=== PATIENT | male | born 1985 | race Caucasian/White ===

== ENCOUNTER → 2016-02-24 | Day surgery (SDC) | payer BC ==
[~2016-02-24] MED LIST: BENZOCAINE SPRAY 100 APPLIC/CAN TOPICAL PRN; MIDAZOLAM 2 MG/2 ML VIAL ONE; SODIUM CHLORIDE 0.9% 500 ML IV ONE; fentaNYL (PF) 50 MCG/ML 2 ML AMP IV ONE; fentaNYL (PF) 50 MCG/ML 2 ML AMP ONE
[2016-02-24 06:36] VITALS: TEMP 98
[2016-02-24] MEDS: BENZOCAINE SPRAY 100 APPLIC/CAN MUCOUS MEM ONE ×2 (07:35→07:49)
[2016-02-24] MEDS: MIDAZOLAM 2 MG/2 ML VIAL IV ONE ×2 (07:49→07:51)
[2016-02-24 08:22] VITALS: RESP 16
[2016-02-24 08:50] VITALS: BP 127/78; PULSE 74
--- NOTE | 2016-02-24 10:30 | ECHOT ---
DATE OF SERVICE: 02/24/2016 PERFORMING PHYSICIAN: Leonid Chan MD, hogshead inspector. PROCEDURE PERFORMED: Transesophageal echocardiogram. INDICATION: This is a very pleasant 30-year-old gentleman who sees Dr. Adam and was diagnosed with a stroke recently. The transesophageal echocardiogram is to rule out any cardiac source of embolization. SEDATION: Conscious sedation was performed using 3 mg of Versed and 25 mcg of fentanyl on divided doses. COMPLICATIONS: None. LEVEL OF SEDATION: Moderate. PROCEDURE DESCRIPTION: After obtaining an informed consent, explaining the procedure, benefits, risks, complications and alternatives, the patient was brought to the transesophageal echocardiogram suite. A pulse oximetry and heart rate monitors were attached to the patient prior to the procedure. The patient's throat was sprayed using lidocaine locally. Following that, the patient was turned into left lateral position. A bite guard was placed and the patient was then sedated with the above doses of Versed and fentanyl in divided doses. Following that, the transesophageal echocardiogram probe was advanced through the bite guard into the mid esophagus where 2-D echocardiogram images as well as color Doppler images of various cardiac structures were obtained. We evaluated the interatrial septum using 2-D echocardiogram, color Doppler, and contrast study. The procedure was completed. There were no complications. FINDINGS: The left ventricular dimension and systolic function appeared to be within normal limits. The ejection fraction appeared to be in the range of 55% with a normal wall motion. Right ventricle is of normal size and function. The right atrium and left atrium appeared to be within normal limits. The aortic valve is trileaflet valve without stenosis or regurgitation. The mitral valve is normal as well with trace physiologic MR. Normal tricuspid valve and pulmonic valve seen. The left atrial appendage appeared to be free from any thrombus. The interatrial septum appeared to be intact as well. CONCLUSION: 1. There is no evidence of cardiac source of embolization. 2. Intact interatrial septum without any evidence of shunt. No patent foramen ovale ( ) seen. 3. Normal left atrial appendage without any evidence of thrombus. 4. Normal cardiac chamber sizes. 5. Normal left ventricular dimension and systolic function. 6. Normal intracardiac valves. 7. Normal aortic root dimension. 8. No evidence of pericardial effusion.
== END ==
LOC: CATHCVL 05:56
PROVIDERS: ATTEND Internal Medicine Interventional Cardiology
DX: Z86.73 Personal history of transient ischemic attack (TIA), and cerebral infarction without residual deficits (principal)
CPT/HCPCS: 93312; 93320; 93325; J2250; J3010

== ENCOUNTER → 2016-04-04 | Outpatient (CLI) | payer BC ==
[2016-04-04 09:22] LABS: Basophils # (A) 0.1 k/uL (0-0.2); Basophils % (A) 1 %; CH 30.3; CHCM 32.9; Eosinophils # (A) 0.1 k/uL (0-0.7); Eosinophils % (A) 1 %; HCT 45.6 % (39.0-53.0); HDW 2.47; HGB 14.9 gm/dL (13.0-17.5); Luc # (Auto) 0.22; Luc % (Auto) 3; Lymphocytes # (A) 2.6 k/uL (1.0-4.8); Lymphocytes % (A) 30 %; MCH 30.3 pg (25.0-35.0); MCHC 32.8 g/dL (31.0-37.0); MCV 92.5 fL (80.0-100.0); Mean Platelet Volume 7.1; Monocytes # (A) 0.6 k/uL (0-1.0); Monocytes % (A) 7 %; Neutrophils # (A) 5.2 k/uL (1.3-7.7); Neutrophils % (A) 59 %; RBC 4.93 m/uL (4.30-5.90); RDW 13.6 % (11.5-15.5); WBC 8.9 k/uL (3.8-10.6); WBC (Perox) 9.18
[2016-04-05 12:08] LABS: Levetiracetam (Keppra) 18.6 ug/mL (3.0-60.0)
[2016-04-11 12:54] LABS: Mis test requested (Blood) VIMPAT
== END | disposition home or self-care (01) ==
LOC: LABWHC1 08:55
PROVIDERS: ATTEND Psychiatry & Neurology Neurology
DX: G40.309 Generalized idiopathic epilepsy and epileptic syndromes, not intractable, without status epilepticus (principal)
CPT/HCPCS: 36415; 80164; 80177; 80183; 80339; 84295; 84450; 84460; 85025

== ENCOUNTER → 2017-10-10 | Outpatient (CLI) | payer BC ==
[2017-10-10 11:40] LABS: Basophils % (A) 1 %; Eosinophils # (A) 0.1 k/uL (0-0.7); Eosinophils % (A) 2 %; HCT 43.1 % (39.0-53.0); HGB 13.2 gm/dL (13.0-17.5); Lymphocytes % (A) 39 %; MCH 28.9 pg (25.0-35.0); MCHC 30.7 g/dL (31.0-37.0); MCV 93.9 fL (80.0-100.0); Mean Platelet Volume 5.8; Monocytes # (A) 0.4 k/uL (0-1.0); Monocytes % (A) 5 %; Neutrophils % (A) 52 %; Platelet Count 290 k/uL (150-450); RBC 4.59 m/uL (4.30-5.90); RDW 13.8 % (11.5-15.5); WBC 7.7 k/uL (3.8-10.6)
[2017-10-10 11:48] LABS: Valproic Acid (Depakene) 64.1 ug/mL
[2017-10-11 13:33] LABS: Levetiracetam (Keppra) 22.6 ug/mL (3.0-60.0)
== END | disposition home or self-care (01) ==
LOC: LABWHC1 11:08
PROVIDERS: ATTEND Psychiatry & Neurology Neurology
DX: G40.309 Generalized idiopathic epilepsy and epileptic syndromes, not intractable, without status epilepticus (principal)
CPT/HCPCS: 36415; 80164; 80177; 80183; 84295; 84450; 84460; 85025

== ENCOUNTER → 2018-04-17 | Outpatient (CLI) | payer BC ==
[2018-04-17 12:38] LABS: Basophils % (A) 0 %; Eosinophils # (A) 0.1 k/uL (0-0.7); Eosinophils % (A) 2 %; HCT 43.8 % (39.0-53.0); HGB 14.1 gm/dL (13.0-17.5); Lymphocytes # (A) 2.2 k/uL (1.0-4.8); Lymphocytes % (A) 38 %; MCH 29.4 pg (25.0-35.0); MCHC 32.2 g/dL (31.0-37.0); MCV 91.4 fL (80.0-100.0); Mean Platelet Volume 6.3; Monocytes # (A) 0.3 k/uL (0-1.0); Monocytes % (A) 5 %; Neutrophils % (A) 52 %; Platelet Count 291 k/uL (150-450); RDW 13.7 % (11.5-15.5); WBC 5.7 k/uL (3.8-10.6)
[2018-04-18 07:42] LABS: Levetiracetam (Keppra) 14.5 ug/mL (3.0-60.0)
== END | disposition home or self-care (01) ==
LOC: LABWHC1 12:21
PROVIDERS: ATTEND Psychiatry & Neurology Neurology
DX: G40.309 Generalized idiopathic epilepsy and epileptic syndromes, not intractable, without status epilepticus (principal)
CPT/HCPCS: 36415; 80164; 80177; 80183; 80339; 84450; 84460; 85025

== ENCOUNTER → 2018-09-25 | Outpatient (CLI) | payer BC ==
[2018-09-25 12:32] LABS: Basophils % (A) 0 %; Eosinophils # (A) 0.1 k/uL (0-0.7); Eosinophils % (A) 1 %; HGB 14.3 gm/dL (13.0-17.5); Lymphocytes # (A) 2.7 k/uL (1.0-4.8); Lymphocytes % (A) 34 %; MCH 29.9 pg (25.0-35.0); MCHC 32.4 g/dL (31.0-37.0); MCV 92.3 fL (80.0-100.0); Mean Platelet Volume 6.5; Monocytes # (A) 0.5 k/uL (0-1.0); Monocytes % (A) 6 %; Neutrophils # (A) 4.3 k/uL (1.3-7.7); Neutrophils % (A) 55 %; Platelet Count 302 k/uL (150-450); RBC 4.77 m/uL (4.30-5.90); RDW 14.4 % (11.5-15.5); WBC 7.8 k/uL (3.8-10.6)
[2018-09-26 08:35] LABS: Levetiracetam (Keppra) 14.8 ug/mL (3.0-60.0)
== END | disposition home or self-care (01) ==
LOC: LABWHC1 11:10
PROVIDERS: ATTEND Psychiatry & Neurology Neurology
DX: G40.309 Generalized idiopathic epilepsy and epileptic syndromes, not intractable, without status epilepticus (principal)
CPT/HCPCS: 36415; 80164; 80177; 80183; 80339; 84295; 84450; 84460; 85025

== ENCOUNTER → 2019-03-03 | Outpatient (CLI) | payer BC ==
[2019-03-03 11:35] LABS: Basophils % (A) 0 %; Eosinophils # (A) 0.1 k/uL (0-0.7); Eosinophils % (A) 2 %; HCT 46.7 % (39.0-53.0); HGB 14.9 gm/dL (13.0-17.5); Lymphocytes # (A) 2.6 k/uL (1.0-4.8); Lymphocytes % (A) 38 %; MCHC 31.8 g/dL (31.0-37.0); MCV 91.3 fL (80.0-100.0); Mean Platelet Volume 6.3; Monocytes # (A) 0.3 k/uL (0-1.0); Monocytes % (A) 5 %; Neutrophils # (A) 3.7 k/uL (1.3-7.7); Neutrophils % (A) 53 %; Platelet Count 312 k/uL (150-450); RBC 5.12 m/uL (4.30-5.90); WBC 6.9 k/uL (3.8-10.6)
[2019-03-03 17:30] LABS: Valproic Acid (Depakene) 52.6 ug/mL (50.0-100.0)
[2019-03-04 09:10] LABS: Levetiracetam (Keppra) 20.4 ug/mL (3.0-60.0)
== END | disposition home or self-care (01) ==
LOC: LABWHC1 10:49
PROVIDERS: ATTEND Psychiatry & Neurology Neurology
DX: G40.309 Generalized idiopathic epilepsy and epileptic syndromes, not intractable, without status epilepticus (principal)
CPT/HCPCS: 36415; 80164; 80177; 80183; 80235; 84295; 84450; 84460; 85025

== ENCOUNTER → 2019-04-10 | Outpatient (CLI) | payer BC ==
[2019-04-11 00:09] LABS: Valproic Acid (Depakene) 74.7 ug/mL (50.0-100.0)
== END | disposition home or self-care (01) ==
LOC: LABWHC1 14:35
PROVIDERS: ATTEND Psychiatry & Neurology Neurology
DX: G40.309 Generalized idiopathic epilepsy and epileptic syndromes, not intractable, without status epilepticus (principal)
CPT/HCPCS: 36415; 80164; 84450; 84460

== ENCOUNTER → 2019-08-03 | Outpatient (CLI) | payer BC ==
[2019-08-03 14:35] LABS: Mean Platelet Volume 6.2; Platelet Count 298 k/uL (150-450)
[2019-08-04 02:44] LABS: Valproic Acid (Depakene) 59.2 ug/mL (50.0-100.0)
[2019-08-04 09:23] LABS: Levetiracetam (Keppra) 13.3 ug/mL (3.0-60.0)
== END | disposition home or self-care (01) ==
LOC: LABWHC1 13:12
PROVIDERS: ATTEND Psychiatry & Neurology Neurology
DX: G40.309 Generalized idiopathic epilepsy and epileptic syndromes, not intractable, without status epilepticus (principal)
CPT/HCPCS: 36415; 80164; 80177; 80183; 80235; 84450; 84460; 85049

== ENCOUNTER → 2019-11-09 | Outpatient (CLI) | payer BC ==
[2019-11-09 15:23] LABS: Mean Platelet Volume 5.9; Platelet Count 282 k/uL (150-450)
[2019-11-09 19:02] LABS: Valproic Acid (Depakene) 68.6 ug/mL (50.0-100.0)
== END | disposition home or self-care (01) ==
LOC: LABWHC1 12:48
PROVIDERS: ATTEND Psychiatry & Neurology Neurology
DX: G40.309 Generalized idiopathic epilepsy and epileptic syndromes, not intractable, without status epilepticus (principal); Z79.899 Other long term (current) drug therapy
CPT/HCPCS: 36415; 80164; 80177; 80183; 80235; 84450; 84460; 85049

== ENCOUNTER → 2019-12-07 | Outpatient (CLI) | payer BC ==
[2019-12-07 22:03] LABS: Valproic Acid (Depakene) 55.2 ug/mL (50.0-100.0)
== END | disposition home or self-care (01) ==
LOC: LABWHC1 11:06
PROVIDERS: ATTEND Psychiatry & Neurology Neurology
DX: G40.309 Generalized idiopathic epilepsy and epileptic syndromes, not intractable, without status epilepticus (principal)
CPT/HCPCS: 36415; 80164; 84450; 84460

== ENCOUNTER → 2020-01-01 | Outpatient (CLI) | payer BC ==
[2020-01-01 12:06] LABS: HCT 44.5 % (39.0-53.0); HGB 15.2 gm/dL (13.0-17.5); MCH 29.9 pg (25.0-35.0); MCHC 34.1 g/dL (31.0-37.0); MCV 87.9 fL (80.0-100.0); Mean Platelet Volume 6.2; Platelet Count 282 k/uL (150-450); RBC 5.07 m/uL (4.30-5.90); RDW 13.3 % (11.5-15.5); WBC 6.3 k/uL (3.8-10.6)
[2020-01-02 05:43] LABS: Valproic Acid (Depakene) 81.6 ug/mL (50.0-100.0)
== END | disposition home or self-care (01) ==
LOC: LABWHC1 11:13
PROVIDERS: ATTEND Psychiatry & Neurology Neurology
DX: G40.309 Generalized idiopathic epilepsy and epileptic syndromes, not intractable, without status epilepticus (principal)
CPT/HCPCS: 36415; 80164; 80177; 80183; 80235; 84450; 84460; 85027

== ENCOUNTER → 2020-04-25 | Outpatient (CLI) | payer MEDICARE, BC ==
[2020-04-25 15:13] LABS: Platelet Count 279 X 10*3/uL (140-440)
[2020-04-25 17:35] LABS: Valproic Acid (Depakene) 78.5 ug/mL (50.0-100.0)
[2020-04-26 07:24] LABS: Levetiracetam (Keppra) 13.6 ug/mL (3.0-60.0)
== END | disposition home or self-care (01) ==
LOC: LABWHC1 09:58
PROVIDERS: ATTEND Psychiatry & Neurology Neurology
DX: G40.309 Generalized idiopathic epilepsy and epileptic syndromes, not intractable, without status epilepticus (principal)
CPT/HCPCS: 36415; 80164; 80177; 80183; 80235; 84295; 84450; 84460; 85049

== ENCOUNTER → 2020-07-28 | Outpatient (CLI) | payer MEDICARE, BC ==
[2020-07-29 05:37] LABS: ALT 84 U/L (10-49); AST 36 U/L (14-35); Sodium 138 mmol/L (135-145)
== END | disposition home or self-care (01) ==
LOC: LABWHC1 14:37
PROVIDERS: ATTEND Psychiatry & Neurology Neurology
DX: G40.309 Generalized idiopathic epilepsy and epileptic syndromes, not intractable, without status epilepticus (principal)
CPT/HCPCS: 36415; 80183; 84295; 84450; 84460

== ENCOUNTER → 2020-10-19 | Outpatient (CLI) | payer MEDICARE, BC ==
[2020-10-19 16:09] LABS: Basophils # (A) 0.02 X 10*3/uL (0.00-0.10); Basophils % (A) 0.4 %; Eosinophils # (A) 0.13 X 10*3/uL (0.04-0.35); Eosinophils % (A) 2.4 %; HGB 14.4 g/dL (13.0-17.0); Lymphocytes # (A) 2.17 X 10*3/uL (0.90-5.00); Lymphocytes % (A) 39.5 %; MCH 29.9 pg (27.0-32.0); MCHC 31.3 g/dL (32.0-37.0); MCV 95.6 fL (80.0-97.0); Mean Platelet Volume 8.5 fL (9.5-12.2); Monocytes # (A) 0.39 X 10*3/uL (0.20-1.00); Monocytes % (A) 7.1 %; Neutrophils # (A) 2.76 X 10*3/uL (1.80-7.70); Neutrophils % (A) 50.2 %; Platelet Count 255 X 10*3/uL (140-440); RBC 4.81 X 10*6/uL (4.40-5.60); RDW 12.5 % (11.5-14.5); WBC 5.49 X 10*3/uL (4.50-10.00)
[2020-10-19 21:25] LABS: Valproic Acid (Depakene) 35.4 ug/mL (50.0-100.0)
== END | disposition home or self-care (01) ==
LOC: LABWHC1 08:40
PROVIDERS: ATTEND Psychiatry & Neurology Neurology
DX: G40.309 Generalized idiopathic epilepsy and epileptic syndromes, not intractable, without status epilepticus (principal)
CPT/HCPCS: 36415; 80164; 80177; 80183; 80235; 84295; 84450; 84460; 85025

== ENCOUNTER → 2021-04-04 | Outpatient (CLI) | payer MEDICARE, BC ==
[2021-04-04 14:57] LABS: Basophils # (A) 0.02 X 10*3/uL (0.00-0.10); Basophils % (A) 0.3 %; Eosinophils # (A) 0.07 X 10*3/uL (0.04-0.35); Eosinophils % (A) 1.1 %; HCT 43.8 % (39.6-50.0); HGB 14.2 g/dL (13.0-17.0); Immature Grans, Automated 0.3 %; Lymphocytes # (A) 2.42 X 10*3/uL (0.90-5.00); Lymphocytes % (A) 38.8 %; MCH 30.1 pg (27.0-32.0); MCHC 32.4 g/dL (32.0-37.0); MCV 92.8 fL (80.0-97.0); Mean Platelet Volume 8.7 fL (9.5-12.2); Monocytes # (A) 0.38 X 10*3/uL (0.20-1.00); Monocytes % (A) 6.1 %; NRBC Per 100 WBC 0 /100 WBCS (0.0-0.0); Neutrophils # (A) 3.33 X 10*3/uL (1.80-7.70); Neutrophils % (A) 53.4 %; Platelet Count 253 X 10*3/uL (140-440); RBC 4.72 X 10*6/uL (4.40-5.60); RDW 12.4 % (11.5-14.5); WBC 6.24 X 10*3/uL (4.50-10.00)
[2021-04-04 21:55] LABS: Valproic Acid (Depakene) 40.2 ug/mL (50.0-100.0)
[2021-04-05 07:27] LABS: Levetiracetam (Keppra) 10.5 ug/mL (3.0-60.0)
== END | disposition home or self-care (01) ==
LOC: LABWHC1 09:40
PROVIDERS: ATTEND Psychiatry & Neurology Neurology
DX: G40.309 Generalized idiopathic epilepsy and epileptic syndromes, not intractable, without status epilepticus (principal)
CPT/HCPCS: 36415; 80164; 80177; 80183; 80235; 84295; 84450; 84460; 85025

== ENCOUNTER → 2021-11-02 | Outpatient (CLI) | payer MEDICARE, BC ==
[2021-11-02 18:51] LABS: Basophils # (A) 0.01 X 10*3/uL (0.00-0.10); Basophils % (A) 0.2 %; Eosinophils # (A) 0.08 X 10*3/uL (0.04-0.35); Eosinophils % (A) 1.2 %; HCT 42.5 % (39.6-50.0); HGB 13.8 g/dL (13.0-17.0); Immature Grans, Automated 0.2 %; Lymphocytes # (A) 1.85 X 10*3/uL (0.90-5.00); Lymphocytes % (A) 27.8 %; MCH 30.5 pg (27.0-32.0); MCHC 32.5 g/dL (32.0-37.0); Mean Platelet Volume 9.1 fL (9.5-12.2); Monocytes # (A) 0.79 X 10*3/uL (0.20-1.00); Monocytes % (A) 11.9 %; NRBC Per 100 WBC 0 /100 WBCS (0.0-0.0); Neutrophils # (A) 3.92 X 10*3/uL (1.80-7.70); Neutrophils % (A) 58.7 %; Platelet Count 247 X 10*3/uL (140-440); RBC 4.52 X 10*6/uL (4.40-5.60); RDW 13.3 % (11.5-14.5); WBC 6.66 X 10*3/uL (4.50-10.00)
[2021-11-02 20:52] LABS: Valproic Acid (Depakene) 36.8 ug/mL (50.0-100.0)
[2021-11-03 10:33] LABS: Levetiracetam (Keppra) 16.5 ug/mL (3.0-60.0)
== END | disposition home or self-care (01) ==
LOC: LABWHC1 12:13
PROVIDERS: ATTEND Psychiatry & Neurology Neurology
DX: G40.309 Generalized idiopathic epilepsy and epileptic syndromes, not intractable, without status epilepticus (principal)
CPT/HCPCS: 36415; 80164; 80177; 80183; 80235; 84295; 84450; 84460; 85025

== ENCOUNTER → 2022-02-16 | Outpatient (CLI) | payer MEDICARE, BC ==
[2022-02-16 14:55] LABS: Basophils # (A) 0.02 X 10*3/uL (0.00-0.10); Basophils % (A) 0.3 %; Eosinophils # (A) 0.11 X 10*3/uL (0.04-0.35); Eosinophils % (A) 1.5 %; HCT 42.9 % (39.6-50.0); HGB 13.7 g/dL (13.0-17.0); Immature Grans, Automated 0.1 %; Lymphocytes % (A) 43.4 %; MCH 30.7 pg (27.0-32.0); MCHC 31.9 g/dL (32.0-37.0); MCV 96.2 fL (80.0-97.0); Monocytes # (A) 0.59 X 10*3/uL (0.20-1.00); Monocytes % (A) 8.3 %; NRBC Per 100 WBC 0 /100 WBCS (0.0-0.0); Neutrophils # (A) 3.31 X 10*3/uL (1.80-7.70); Neutrophils % (A) 46.4 %; Platelet Count 277 X 10*3/uL (140-440); RBC 4.46 X 10*6/uL (4.40-5.60); RDW 12.4 % (11.5-14.5); WBC 7.14 X 10*3/uL (4.50-10.00)
[2022-02-16 19:21] LABS: Valproic Acid (Depakene) 37.4 ug/mL (50.0-100.0)
[2022-02-17 16:37] LABS: Levetiracetam (Keppra) 20.4 ug/mL (3.0-60.0)
== END | disposition home or self-care (01) ==
LOC: LABWHC1 09:26
PROVIDERS: ATTEND Psychiatry & Neurology Neurology
DX: G40.309 Generalized idiopathic epilepsy and epileptic syndromes, not intractable, without status epilepticus (principal)
CPT/HCPCS: 36415; 80164; 80177; 80183; 80235; 84295; 84450; 84460; 85025

== ENCOUNTER → 2023-01-15 | Outpatient (CLI) | payer MEDICARE, BC ==
[2023-01-15 16:46] LABS: Platelet Count 279 X 10*3/uL (140-440)
[2023-01-15 17:19] LABS: Valproic Acid (Depakene) 40.2 UG/ML (50.0-100.0)
[2023-01-16 07:29] LABS: Levetiracetam (Keppra) 11.2 ug/mL (3.0-60.0)
== END | disposition home or self-care (01) ==
LOC: LABWHC1 11:14
PROVIDERS: ATTEND Psychiatry & Neurology Neurology
DX: G40.309 Generalized idiopathic epilepsy and epileptic syndromes, not intractable, without status epilepticus (principal)
CPT/HCPCS: 36415; 80164; 80177; 80183; 80235; 84295; 84450; 84460; 85049